=== PATIENT | male | born 1950 | race Caucasian/White ===

== ENCOUNTER 2017-09-03 20:04 | Outpatient (RCR) | payer MEDICARE, OTHER ==
[~2017-09-03] VITALS: Ht 190.5 cm; Wt 125.0 kg
[2017-09-03 20:19] VITALS: BP 144/81
[2017-09-04] MEDS ORDERED: LOW DOSE ASPIRI81 M1 PO (06:05)
[2017-09-04] MEDS ORDERED: LIPITOR 80MG80 MG PO (06:05)
[2017-09-04] MEDS ORDERED: BIMATOPROST2.5 ML OU (06:07)
[2017-09-04] MEDS ORDERED: IODOSORB 0.9% TP (06:08)
[2017-09-04] MEDS ORDERED: CLOPIDOGREL PO (06:10)
[2017-09-04] MEDS ORDERED: TIKOSYN0.5 MG PO (06:10)
[2017-09-04] MEDS ORDERED: COSOPT EYE DROPS OU (06:11)
[2017-09-04] MEDS ORDERED: NEURONTIN300 M1 PO (06:12)
[2017-09-04] MEDS ORDERED: HUMULIN 70 U/ML10 ML SQ ×2 (06:14→06:15)
[2017-09-04] MEDS ORDERED: COZAAR 50MG50 MG/TAB PO (06:16)
[2017-09-04] MEDS ORDERED: MAGNESIUM400 M1 PO (06:17)
[2017-09-04] MEDS ORDERED: GLUCOPHAGE850 MG PO (06:17)
[2017-09-04] MEDS ORDERED: TOPROL XL100 MG PO (06:18)
[2017-09-04] MEDS ORDERED: ESSENTIAL DAIL1 EACH PO (06:18)
[2017-09-04] MEDS ORDERED: MUPIROCIN CALCIUM2% TP (06:19)
[2017-09-04] MEDS ORDERED: NITROSTAT0.4 M1 SL (06:19)
[2017-09-04] MEDS ORDERED: TRAVATAN Z 5 ML5 ML OU (06:20)
[2017-09-10 19:23] VITALS: BP 165/94
== END 2017-12-02 | disposition home or self-care (01) ==
LOC: AMSURD
DX: Z48.01 Encounter for change or removal of surgical wound dressing (principal); E11.621 Type 2 diabetes mellitus with foot ulcer; L97.422 Non-pressure chronic ulcer of left heel and midfoot with fat layer exposed; Z79.82 Long term (current) use of aspirin; Z79.4 Long term (current) use of insulin